=== PATIENT | male | born 1935 | race Caucasian/White ===

== ENCOUNTER 2021-07-17 11:41 | Observation (INO) | payer OTHER ==
[~2021-07-17 11:41] MED LIST: Bamlanivimab 700 MG, ETESEVIMAB 1,400 MG in Sodium Chloride 0.9% 100 ML IV ONE
[2021-07-17] MEDS ORDERED: Sodium Chloride 0.9% 10 ML Syringe FLUSH PRN (11:49)
[2021-07-17] MEDS ORDERED: Sodium Chloride 0.9% 2.5 ML Syringe FLUSH PRN (11:49)
--- NOTE | 2021-07-17 12:05 | PCM.EKG ---
#1 Interpretation EKG Date: 07/17/21 Time: 11:48 Rhythm: NSR Rate (Beats/Min): 58 [place]: Normal P-Wave: Present QRS: LBBB ST-T: Normal QT: Normal Comparison: NA - No Prior EKG EKG Interpretation Comments: A fibrillation with LBBB
[2021-07-17 12:34] LABS: BLOOD UREA NITROGEN,BUN 25 mg/dL (7.0-18.0); CARBON DIOXIDE,CO2 24.4 mmol/L (21.0-32.0); CHLORIDE,CL 104 mmol/L (98-107); GLUCOSE RANDOM 92 mg/dL (74-106); POTASSIUM,K 4.1 mmol/L (3.5-5.1); SODIUM,NA 140 mmol/L (136-148)
[2021-07-17] MEDS ORDERED: Iopamidol 755 MG/ML 500 ML Multipack Bottle IVPUSH STA (13:40)
--- NOTE | 2021-07-17 14:13 | CR ---
INDICATION: Fall TECHNIQUE: AP pelvis two views COMPARISON: 03/26/2018 FINDINGS: Bones: Alignment is normal. Heterotopic bone formation adjacent to the right greater trochanter and proximal shaft. Joint spaces: Total right hip arthroplasty with no obvious hardware abnormalities. Soft tissues: Unremarkable. IMPRESSION: No evidence of acute trauma. Dictated by Adam Abbasi MD @ 07/17/2021 2:11:26 PM (Electronically Signed)
--- NOTE | 2021-07-17 14:17 | CR ---
INDICATION: SOB TECHNIQUE: Chest 1 view. COMPARISON: None. FINDINGS: Cardiovascular and mediastinum: Heart size and vasculature are normal in caliber and appearance. Mediastinum is within normal limits. Lungs and pleural space: Lungs are clear. No sign of infiltrate or mass. No sign of pleural effusion. No pneumothorax. Bones and soft tissues: No significant findings. IMPRESSION: Unremarkable chest. Dictated by: Adam Abbasi MD @ 07/17/2021 14:16:44 (Electronically Signed)
--- NOTE | 2021-07-17 14:21 | CT ---
INDICATION: Shortness of breath. History of atrial fibrillation. TECHNIQUE: CT chest PE was acquired with 100 cc Isovue 370 IV contrast. COMPARISON: None. FINDINGS: Heart and vasculature: Contrast opacification of the pulmonary arterial tree is adequate. No sign of pulmonary embolism. Moderate cardiomegaly with particular enlargement of the left ventricle and atrium.Great vessels normal in caliber. Lungs and pleural: No suspicious nodules or infiltrates. Mild scarring and fibrotic changes in the lung bases. No pleural effusions, pleural thickening, or pneumothorax. Lymph nodes/mediastinum: Few borderline to minimally prominent mediastinal lymph nodes. Small hiatal hernia. Chest wall: No masses. Upper abdomen: No acute or significant findings. Bones: Severe compression fracture of the T12 vertebral body appears chronic. IMPRESSION: 1. No pulmonary embolism. 2. Cardiomegaly without further signs of acute heart failure. 3. Mild bibasilar scarring or fibrosis. 4. No other specific finding to explain shortness of breath. Please note that all CT scans at this facility use dose modulation, iterative reconstruction, and/or weight-based dosing when appropriate to reduce radiation dose to as low as reasonably achievable. Dictated by Rigoberto De La Fuente MD @ 07/17/2021 2:20:47 PM (Electronically Signed)
[2021-07-17 16:07] LABS: CORONAVIRUS COVID-19 NAA POSITIVE (NEGATIVE); INFLUENZA A NAA NEGATIVE (NEGATIVE); INFLUENZA B NAA NEGATIVE (NEGATIVE)
--- NOTE | 2021-07-17 20:35 | EDM.PDOC ---
ED HPI GENERAL MEDICAL PROBLEM - General Chief Complaint: Cardiovascular Problem Stated Complaint: FELL IN SHOWER/HEART ISSUES Time Seen by Provider: 07/17/21 11:51 - History of Present Illness INITIAL COMMENTS - FREE TEXT/NARRATIVE: CHIEF COMPLAINT(S): Tailbone pain HISTORY OF PRESENT ILLNESS: This is a 86-year-old man with a past medical history of hypertension and hypothyroidism who comes to the emergency department with a chief complaint of tailbone pain. The patient states that yesterday he was walking and he got off balance and could not catch himself so he fell on his bottom hitting his tailbone. He states that he is experiencing some pain in his tailbone which she describes as throbbing rated 0 out of 10 currently but when he moves it is about 4-5 out of 10. He denies any bowel incontinence, urinary incontinence or saddle anesthesia. He states that this pain does not radiate and that he does not have any relieving factors. He denies any associated numbness, tingling, or weakness. Pain is exacerbated by movement. He states that after his fall yesterday was evaluated by [facility] and was diagnosed with new onset atrial fibrillation. He states that they recommended admission however they did not have a physician for him to be admitted to and so he was discharged. He states that for the last few days he has been experiencing dyspnea and a nonproductive cough. He denies any fevers, lower extremity edema, recent travel, recent surgery or prior history of DVT or PE. He denies any history of CAD or CHF. He denies any other symptoms. He states that he did not put him on anticoagulation REVIEW OF SYSTEMS: Constitutional: Denies fever, chills. Eyes: Denies eye pain Ears, Nose, Mouth, & Throat: Denies earache Cardiovascular: Denies chest pain Respiratory: Positive for dyspnea and nonproductive cough Gastrointestinal: Denies, bowel incontinence nausea, vomiting, diarrhea, hematochezia. Genitourinary: Denies hematuria, urinary incontinence Skin:Denies a rash MSK: Positive for tailbone pain. Neurological: Denies blurred vision, numbness, tingling, weakness Psychiatric: Denies depression PAST MEDICAL HISTORY: As per history of present illness and as reviewed below otherwise noncontributory. SURGICAL HISTORY: As per history of present illness and as reviewed below otherwise noncontributory. SOCIAL HISTORY: As per history of present illness and as reviewed below other hannah noncontributory. FAMILY HISTORY: As per history of present illness and as reviewed below otherwise noncontributory. EXAMINATION OF ORGAN SYSTEMS/BODY AREAS: Constitutional: Blood pressure is 133/77, heart rate 57, respiratory rate 18 with an oxygen saturation a 96% on room air. Temperature 35.7 temporal General: Well-appearing elderly man who is in no acute distress Psychiatric: Appropriate mood and affect. Eyes: No scleral icterus or conjunctival erythema ENMT: Moist mucous membranes. No pharyngeal erythema Cardiovascular: Regular, rate, and rhythm. No gallops, murmurs, or rubs. Bilateral upper extremity pulses symmetric and intact. No peripheral edema. No JVD. Respiratory: Lungs clear to auscultation bilaterally. No wheezes, rales, or rhonchi. Gastrointestinal: Soft, non-tender, non-distended. Normoactive bowel sounds Genitourinary: No suprapubic tenderness Musculoskeletal: Normal range of motion. No cervical, thoracic, or lumbar midline spinal tenderness. There are some tenderness along the tailbone. No obvious deformity. Skin: No lesions or abrasions. Neurological: Alert, GCS 15 strength and sensation grossly intact in upper and lower extremities bilaterally MEDICAL DECISION MAKING AND COURSE IN THE ED WITH INTERPRETATION/REVIEW OF DIAGNOSTIC STUDIES: This is a 86-year-old man with a past medical history of hypertension and sleep apnea who does not wear his CPAP who comes to the emergency department with dyspnea, nonproductive cough, and outpatient evaluation revealing new onset atrial fibrillation who is now on anticoagulation who is here for tailbone pain after a mechanical fall. I did review the patient's paperwork from discharge. They did obtain a BNP which was not elevated his troponin was normal and otherwise his labs were normal. His chest x-ray at out side hospital did reveal cardiomegaly and nothing else. However given his dyspnea and atrial fibrillation we will obtain a cardiac work-up. Will obtain Covid and influenza swabs. Given the dyspnea and hypoxia will also obtain a D-dimer to evaluate need for possible pulmonary embolism. Patient was amenable to this plan. Given his pain on his sacrum we will obtain a pelvic x- ray given that they did not obtain this image at outside hospital. EKG was obtained which did reveal atrial fibrillation with left bundle branch block. DDx: Pelvic fracture, atrial fibrillation, Covid, pneumonia, PE Laboratory: CBC is unremarkable. INR is normal. CMP is unremarkable. Troponin is negative. D-dimer is elevated at 1.1. Covid is positive. The radiological images were viewed by myself along with reading the report from the radiologist. Chest x-ray does not reveal any acute cardiopulmonary process. Pelvic x-ray does not reveal any fracture or dislocation. Given the elevated D-dimer I did discuss that I would like to obtain an angiogram of the chest. They were amenable to this plan. Patient's vitals continue to remain stable and was borderline hypoxic. The radiological images were viewed by myself along with reading the report from the radiologist. CT angiogram of the chest does not reveal any evidence of pulmonary embolism. There is cardiomegaly without signs of heart failure. After imaging given new onset atrial fibrillation I did discuss observation at this time to discuss need for echocardiogram and anticoagulation. They were amenable to this plan. I contacted Dr. Givens who accepted the patient for admission DISPOSITION: Patient was admitted for observation in stable condition CONDITION: Fair PROCEDURES: Cardiac monitoring interpretation, pulse oximetry interpretation FINAL IMPRESSION(S)/DIAGNOSES: 1. Acute new onset atrial fibrillation 2. Acute COVID-19 infection 3. Acute intermittent hypoxia likely secondary to #1 and #2 Kwadwo Alba M.D. - Related Data Allergies Allergy/AdvReac Type Severity Reaction Status Date / Time No Known Allergies Allergy Verified 07/17/21 17:53 Home Meds: Home Meds Levothyroxine [Synthroid] 50 mcg PO DAILY 07/17/21 [History] Oxybutynin 10 mg PO DAILY 07/17/21 [History] hydroCHLOROthiazide [Hydrochlorothiazide] 25 mg PO DAILY 07/17/21 [History] lisinopriL [Lisinopril] 40 mg PO DAILY 07/17/21 [History] Past Medical History HEENT History: Reports: Impaired Vision Cardiovascular History: Reports: High Cholesterol, Hypertension, Other (See Below) Other Cardiovascular History: CAD Respiratory History: Reports: None Gastrointestinal History: Reports: Colon Polyp, Other (See Below) Other Gastrointestinal History: Unilateral ingunial hernia repair Genitourinary History: Reports: Prostate Disorder, Other (See Below) Other Genitourinary History: nocturia, renal cyst, renal kindey disease stage 3 Musculoskeletal History: Reports: Fracture Other Musculoskeletal History: hip and right arm frature, right hip arthroplasty Neurological History: Reports: None Endocrine/Metabolic History: Reports: Hypothyroidism - Past Surgical History HEENT Surgical History: Reports: Adenoidectomy, Tonsillectomy Cardiovascular Surgical History: Reports: None Respiratory Surgical History: Reports: None GI Surgical History: Reports: Hernia, Inguinal Male Surgical History: Reports: None Musculoskeletal Surgical History: Reports: None, Hip Replacement Social & Family History - Family History Family Medical History: No Pertinent Family History - Tobacco Use Tobacco Use Status *Q: Never Tobacco User - Caffeine Use Caffeine Use: Reports: None - Recreational Drug Use Recreational Drug Use: No ED ROS GENERAL - Review of Systems Review Of Systems: See Below ED EXAM, GENERAL - Physical Exam Exam: See Below Course - Vital Signs Last Recorded V/S: Last Vital Signs Temp 36.2 C 07/17/21 20:06 Pulse 61 07/17/21 20:06 Resp 18 07/17/21 20:06 BP 124/80 07/17/21 20:06 Pulse Ox 93 L 07/17/21 20:06 - Orders/Labs/Meds Orders: Active Orders 24 hr Category Date Time Status Admission Status [Patient Status] [ADT] Stat ADT 07/17/21 15:23 Active Cardiac Monitoring [RC] . DIRECTED Care 07/17/21 11:49 Active Sodium Chloride 0.9% [Saline Flush] Med 07/17/21 11:49 Active 10 ml FLUSH ASDIRECTED PRN Sodium Chloride 0.9% [Saline Flush] Med 07/17/21 11:49 Active 2.5 ml FLUSH ASDIRECTED PRN Saline Lock Insert [OM.PC] Stat Oth 07/17/21 11:49 Ordered Medication Orders Sodium Chloride (Sodium Chloride 0.9% 10 Ml Syringe) 10 ml FLUSH ASDIRECTED PRN PRN Reason: Keep Vein Open Last Admin: 07/17/21 12:04 Dose: 10 ml Documented by: KIRAN Sodium Chloride (Sodium Chloride 0.9% 2.5 Ml Syringe) 2.5 ml FLUSH ASDIRECTED PRN PRN Reason: Keep Vein Open Last Admin: 07/17/21 12:04 Dose: 2.5 ml Documented by: KIRAN Labs: Laboratory Tests 07/17/21 07/17/21 07/17/21 Range/Units 12:00 12:00 12:00 WBC 5.71 (4.0-11.0) K/uL RBC 4.15 L (4.50-5.90) M/uL Hgb 14.0 (13.0-17.0) g/dL Hct 41.4 (38.0-50.0) % MCV 99.8 H (80.0-98.0) fL MCH 33.7 H (27.0-32.0) pg MCHC 33.8 (31.0-37.0) g/dL RDW Std Deviation 49.0 (28.0-62.0) fl RDW Coeff of Angeline 13 (11.0-15.0) % Plt Count 155 (150-400) K/uL MPV 9.80 (7.40-12.00) fL Neut % (Auto) 51.9 (48.0-80.0) % Lymph % (Auto) 27.5 (16.0-40.0) % [place] % (Auto) 18.6 H (0.0-15.0) % Eos % (Auto) 1.8 (0.0-7.0) % Baso % (Auto) 0.2 (0.0-1.5) % Neut # (Auto) 3.0 (1.4-5.7) K/uL Lymph # (Auto) 1.6 (0.6-2.4) K/uL [place] # (Auto) 1.1 H (0.0-0.8) K/uL Eos # (Auto) 0.1 (0.0-0.7) K/uL Baso # (Auto) 0.0 (0.0-0.1) K/uL Nucleated RBC % 0.0 /100WBC Nucleated RBCs # 0 K/uL INR 1.13 D-Dimer, Quantitative (0.0-0.50) mg/L FEU Sodium 140 (136-148) mmol/L Potassium 4.1 (3.5-5.1) mmol/L Chloride 104 (98-107) mmol/L Carbon Dioxide 24.4 (21.0-32.0) mmol/L BUN 25 H (7.0-18.0) mg/dL Creatinine 1.1 (0.8-1.3) mg/dL Est Cr Clr Drug Dosing 50.39 mL/min Estimated GFR (MDRD) > 60.0 ml/min Glucose 92 (74-106) mg/dL Calcium 8.2 L (8.5-10.1) mg/dL Total Bilirubin 0.8 (0.2-1.0) mg/dL AST 34 (15-37) IU/L ALT 23 (14-63) IU/L Alkaline Phosphatase 81 (46-116) U/L Troponin I < 0.050 (0.000-0.056) ng/mL Total Protein 7.4 (6.4-8.2) g/dL Albumin 3.1 L (3.4-5.0) g/dL Globulin 4.3 H (2.6-4.0) g/dL Albumin/Globulin Ratio 0.7 L (0.9-1.6) Influenza Type A RNA (NEGATIVE) Influenza Type B RNA (NEGATIVE) SARS-CoV-2 RNA ([place]AY[place]AN) (NEGATIVE) 07/17/21 07/17/21 Range/Units 12:00 15:20 WBC (4.0-11.0) K/uL RBC (4.50-5.90) M/uL Hgb (13.0-17.0) g/dL Hct (38.0-50.0) % MCV (80.0-98.0) fL MCH (27.0-32.0) pg MCHC (31.0-37.0) g/dL RDW Std Deviation (28.0-62.0) fl RDW Coeff of Angeline (11.0-15.0) % Plt Count (150-400) K/uL MPV (7.40-12.00) fL Neut % (Auto) (48.0-80.0) % Lymph % (Auto) (16.0-40.0) % [place] % (Auto) (0.0-15.0) % Eos % (Auto) (0.0-7.0) % Baso % (Auto) (0.0-1.5) % Neut # (Auto) (1.4-5.7) K/uL Lymph # (Auto) (0.6-2.4) K/uL [place] # (Auto) (0.0-0.8) K/uL Eos # (Auto) (0.0-0.7) K/uL Baso # (Auto) (0.0-0.1) K/uL Nucleated RBC % /100WBC Nucleated RBCs # K/uL INR D-Dimer, Quantitative 1.10 H (0.0-0.50) mg/L FEU Sodium (136-148) mmol/L Potassium (3.5-5.1) mmol/L Chloride (98-107) mmol/L Carbon Dioxide (21.0-32.0) mmol/L BUN (7.0-18.0) mg/dL Creatinine (0.8-1.3) mg/dL Est Cr Clr Drug Dosing mL/min Estimated GFR (MDRD) ml/min Glucose (74-106) mg/dL Calcium (8.5-10.1) mg/dL Total Bilirubin (0.2-1.0) mg/dL AST (15-37) IU/L ALT (14-63) IU/L Alkaline Phosphatase (46-116) U/L Troponin I (0.000-0.056) ng/mL Total Protein (6.4-8.2) g/dL Albumin (3.4-5.0) g/dL Globulin (2.6-4.0) g/dL Albumin/Globulin Ratio (0.9-1.6) Influenza Type A RNA NEGATIVE (NEGATIVE) Influenza Type B RNA NEGATIVE (NEGATIVE) SARS-CoV-2 RNA (KAY[place]AN) POSITIVE H (NEGATIVE) Meds: Medications Generic Name Dose Route Start Last Admin Trade Name Freq PRN Reason Stop Dose Admin Sodium Chloride 10 ml 07/17/21 11:49 07/17/21 12:04 Sodium Chloride 0.9% 10 Ml Syringe FLUSH 10 ml ASDIRECTED PRN Administration Keep Vein Open Sodium Chloride 2.5 ml 07/17/21 11:49 07/17/21 12:04 Sodium Chloride 0.9% 2.5 Ml Syringe FLUSH 2.5 ml ASDIRECTED PRN Administration Keep Vein Open Discontinued Medications Generic Name Dose Route Start Last Admin Trade Name Freq PRN Reason Stop Dose Admin Iopamidol 100 ml 07/17/21 13:40 07/17/21 13:42 Iopamidol 755 Mg/Ml 500 Ml Multipack Bottle IVPUSH 07/17/21 13:41 100 ml ONETIME STA Administration Departure - Departure Time of Disposition: 15:23 Disposition: Admitted As Inpatient 65 Condition: Fair Clinical Impression: Atrial fibrillation, COVID-19 - Discharge Information Sepsis Event Note (ED) - Evaluation Sepsis Screening Result: No Definite Risk - Focused Exam Vital Signs: Vital Signs Temp Pulse Resp BP Pulse Ox 07/17/21 15:34 58 L 19 129/75 92 L 07/17/21 14:31 59 L 16 134/84 92 L 07/17/21 11:52 35.7 C L 57 L 18 133/77 96 - My Orders Last 24 Hours: My Active Orders 07/17/21 15:23 Admission Status [Patient Status] [ADT] Stat - Assessment/Plan Last 24 Hours: My Active Orders 07/17/21 15:23 Admission Status [Patient Status] [ADT] Stat
[2021-07-17] MEDS ORDERED: methylPREDNISolone Sodium Succinate 125 MG/2 ML SDV IVPUSH PRN ×2 (21:34→23:55)
[2021-07-17] MEDS ORDERED: EPINEPHrine 1:10,000 1 MG/10 ML Syringe IM PRN ×2 (21:34→23:55)
[2021-07-17] MEDS ORDERED: diphenhydrAMINE 50 MG/ML SDV IVPUSH PRN ×2 (21:34→23:55)
[2021-07-17] MEDS ORDERED: Famotidine 20 MG/2 ML SDV IVPUSH PRN ×2 (21:34→23:55)
--- NOTE | 2021-07-17 21:35 | PCM.HP.2 ---
H&P History of Present Illness - General Date of Service: 07/17/21 Admit Problem/Dx: Admission Diagnosis/Problem Admission Diagnosis/Problem Atrial fibrillation - History of Present Illness Initial Comments - Free Text/Narative: 86 yo male who presented to the ED with complains of tailbone pain after a fall. He also reported to ED that he has been short of breath and was found to be in atrial fibrillation recent in [place]. Patient is alone during my interview and denies ever having any pain or shortness of breath. He was noted to be in atrial fibrillation again in the ED. Pelvis x-ray and CT chest were unremarkable. He is positive for COVID. He has been vaccinated. - Related Data Allergies/Adverse Reactions: Allergies Allergy/AdvReac Type Severity Reaction Status Date / Time No Known Allergies Allergy Verified 07/17/21 17:53 Home Medications: Home Meds Levothyroxine [Synthroid] 50 mcg PO DAILY 07/17/21 [History] Oxybutynin 10 mg PO DAILY 07/17/21 [History] hydroCHLOROthiazide [Hydrochlorothiazide] 25 mg PO DAILY 07/17/21 [History] lisinopriL [Lisinopril] 40 mg PO DAILY 07/17/21 [History] Past Medical History HEENT History: Reports: Impaired Vision Cardiovascular History: Reports: High Cholesterol, Hypertension, Other (See Below) Other Cardiovascular History: CAD Respiratory History: Reports: None Gastrointestinal History: Reports: Colon Polyp, Other (See Below) Other Gastrointestinal History: Unilateral ingunial hernia repair Genitourinary History: Reports: Prostate Disorder, Other (See Below) Other Genitourinary History: nocturia, renal cyst, renal kindey disease stage 3 Musculoskeletal History: Reports: Fracture Other Musculoskeletal History: hip and right arm frature, right hip arthroplasty Neurological History: Reports: None Endocrine/Metabolic History: Reports: Hypothyroidism - Past Surgical History HEENT Surgical History: Reports: Adenoidectomy, Tonsillectomy Cardiovascular Surgical History: Reports: None Respiratory Surgical History: Reports: None GI Surgical History: Reports: Hernia, Inguinal Male Surgical History: Reports: None Musculoskeletal Surgical History: Reports: None, Hip Replacement Social & Family History - Family History Family Medical History: No Pertinent Family History - Tobacco Use Tobacco Use Status *Q: Never Tobacco User - Caffeine Use Caffeine Use: Reports: None - Recreational Drug Use Recreational Drug Use: No H&P Review of Systems - Review of Systems: Review Of Systems: Comprehensive ROS is negative, except as noted in HPI. Exam - Exam Exam: See Below - Vital Signs Vital Signs: Last Vital Signs Temp 36.2 C 07/17/21 20:06 Pulse 61 07/17/21 20:06 Resp 18 07/17/21 20:06 BP 124/80 07/17/21 20:06 Pulse Ox 93 L 07/17/21 20:06 Weight: 75.432 kg - Exam General: Alert, Oriented HEENT: Posterior Pharynx Clear Lungs: Clear to Auscultation, Normal Respiratory Effort Cardiovascular: Regular Rate, Regular Rhythm GI/Abdominal Exam: Soft, Non-Tender, No Distention Extremities: Non-Tender, No Pedal Edema Skin: Warm, Dry, Intact - Patient Data Lab Results Last 24 hrs: Laboratory Results - last 24 hr 07/17/21 07/17/21 07/17/21 Range/Units 12:00 12:00 12:00 WBC 5.71 (4.0-11.0) K/uL RBC 4.15 L (4.50-5.90) M/uL Hgb 14.0 (13.0-17.0) g/dL Hct 41.4 (38.0-50.0) % MCV 99.8 H (80.0-98.0) fL MCH 33.7 H (27.0-32.0) pg MCHC 33.8 (31.0-37.0) g/dL RDW Std Deviation 49.0 (28.0-62.0) fl RDW Coeff of Angeline 13 (11.0-15.0) % Plt Count 155 (150-400) K/uL MPV 9.80 (7.40-12.00) fL Neut % (Auto) 51.9 (48.0-80.0) % Lymph % (Auto) 27.5 (16.0-40.0) % [place] % (Auto) 18.6 H (0.0-15.0) % Eos % (Auto) 1.8 (0.0-7.0) % Baso % (Auto) 0.2 (0.0-1.5) % Neut # (Auto) 3.0 (1.4-5.7) K/uL Lymph # (Auto) 1.6 (0.6-2.4) K/uL [place] # (Auto) 1.1 H (0.0-0.8) K/uL Eos # (Auto) 0.1 (0.0-0.7) K/uL Baso # (Auto) 0.0 (0.0-0.1) K/uL Nucleated RBC % 0.0 /100WBC Nucleated RBCs # 0 K/uL INR 1.13 D-Dimer, Quantitative (0.0-0.50) mg/L FEU Sodium 140 (136-148) mmol/L Potassium 4.1 (3.5-5.1) mmol/L Chloride 104 (98-107) mmol/L Carbon Dioxide 24.4 (21.0-32.0) mmol/L BUN 25 H (7.0-18.0) mg/dL Creatinine 1.1 (0.8-1.3) mg/dL Est Cr Clr Drug Dosing 50.39 mL/min Estimated GFR (MDRD) > 60.0 ml/min Glucose 92 (74-106) mg/dL Calcium 8.2 L (8.5-10.1) mg/dL Total Bilirubin 0.8 (0.2-1.0) mg/dL AST 34 (15-37) IU/L ALT 23 (14-63) IU/L Alkaline Phosphatase 81 (46-116) U/L Troponin I < 0.050 (0.000-0.056) ng/mL Total Protein 7.4 (6.4-8.2) g/dL Albumin 3.1 L (3.4-5.0) g/dL Globulin 4.3 H (2.6-4.0) g/dL Albumin/Globulin Ratio 0.7 L (0.9-1.6) Influenza Type A RNA (NEGATIVE) Influenza Type B RNA (NEGATIVE) SARS-CoV-2 RNA (KAYLAN) (NEGATIVE) 07/17/21 07/17/21 Range/Units 12:00 15:20 WBC (4.0-11.0) K/uL RBC (4.50-5.90) M/uL Hgb (13.0-17.0) g/dL Hct (38.0-50.0) % MCV (80.0-98.0) fL MCH (27.0-32.0) pg MCHC (31.0-37.0) g/dL RDW Std Deviation (28.0-62.0) fl RDW Coeff of Angeline (11.0-15.0) % Plt Count (150-400) K/uL MPV (7.40-12.00) fL Neut % (Auto) (48.0-80.0) % Lymph % (Auto) (16.0-40.0) % [place] % (Auto) (0.0-15.0) % Eos % (Auto) (0.0-7.0) % Baso % (Auto) (0.0-1.5) % Neut # (Auto) (1.4-5.7) K/uL Lymph # (Auto) (0.6-2.4) K/uL [place] # (Auto) (0.0-0.8) K/uL Eos # (Auto) (0.0-0.7) K/uL Baso # (Auto) (0.0-0.1) K/uL Nucleated RBC % /100WBC Nucleated RBCs # K/uL INR D-Dimer, Quantitative 1.10 H (0.0-0.50) mg/L FEU Sodium (136-148) mmol/L Potassium (3.5-5.1) mmol/L Chloride (98-107) mmol/L Carbon Dioxide (21.0-32.0) mmol/L BUN (7.0-18.0) mg/dL Creatinine (0.8-1.3) mg/dL Est Cr Clr Drug Dosing mL/min Estimated GFR (MDRD) ml/min Glucose (74-106) mg/dL Calcium (8.5-10.1) mg/dL Total Bilirubin (0.2-1.0) mg/dL AST (15-37) IU/L ALT (14-63) IU/L Alkaline Phosphatase (46-116) U/L Troponin I (0.000-0.056) ng/mL Total Protein (6.4-8.2) g/dL Albumin (3.4-5.0) g/dL Globulin (2.6-4.0) g/dL Albumin/Globulin Ratio (0.9-1.6) Influenza Type A RNA NEGATIVE (NEGATIVE) Influenza Type B RNA NEGATIVE (NEGATIVE) SARS-CoV-2 RNA (KAYLAN) POSITIVE H (NEGATIVE) Result Diagrams: 07/17/21 12:00 07/17/21 12:00 Sepsis Event Note - Evaluation Sepsis Screening Result: No Definite Risk - Focused Exam Vital Signs: Vital Signs Temp Pulse Resp BP Pulse Ox 07/17/21 20:06 36.2 C 61 18 124/80 93 L 07/17/21 17:51 36.3 C 69 16 160/89 H 93 L 07/17/21 15:55 50 L 12 125/77 93 L 07/17/21 15:34 58 L 19 129/75 92 L 07/17/21 14:31 59 L 16 134/84 92 L 07/17/21 11:52 35.7 C L 57 L 18 133/77 96 - Problem List (1) Atrial fibrillation SNOMED Code(s): 67958489 ICD Code: I48.91 - UNSPECIFIED ATRIAL FIBRILLATION Status: Acute Current Visit: Yes (2) COVID-19 SNOMED Code(s): 982014870 ICD Code: U07.1 - COVID-19 Status: Acute Current Visit: Yes Problem List Initiated/Reviewed/Updated: Yes Orders Last 24hrs: Active Orders 24 hr Category Date Time Status Admission Status [Patient Status] [ADT] Stat ADT 07/17/21 15:23 Active Cardiac Monitoring [RC] . DIRECTED Care 07/17/21 11:49 Active Oxygen Therapy [RC] PRN Care 07/17/21 21:27 Ordered VTE/DVT Education [RC] PER UNIT ROUTINE Care 07/17/21 21:27 Ordered Vital Signs [RC] Q4H Care 07/17/21 21:27 Ordered PT Evaluation and Treatment [CONS] Routine Cons 07/17/21 21:27 Ordered Regular Diet [DIET] Diet 07/17/21 Breakfast Ordered Echo Comp wo Cont [US] Routine Exams 07/17/21 21:28 Ordered CBC WITH AUTO DIFF [HEME] AM Lab 07/18/21 05:11 Ordered COMPREHENSIVE METABOLIC PN,CMP [CHEM] AM Lab 07/18/21 05:11 Ordered Apixaban [Eliquis] Med 07/17/21 21:30 Ordered 5 mg PO BID Levothyroxine [Synthroid] Med 07/18/21 09:00 Ordered 50 mcg PO DAILY Oxybutynin Med 07/18/21 09:00 Ordered 10 mg PO DAILY Sodium Chloride 0.9% [Saline Flush] Med 07/17/21 11:49 Active 10 ml FLUSH ASDIRECTED PRN Sodium Chloride 0.9% [Saline Flush] Med 07/17/21 11:49 Active 2.5 ml FLUSH ASDIRECTED PRN hydroCHLOROthiazide Med 07/18/21 09:00 Ordered 25 mg PO DAILY lisinopriL [Lisinopril] Med 07/18/21 09:00 Ordered 40 mg PO DAILY Saline Lock Insert [OM.PC] Stat Oth 07/17/21 11:49 Ordered Resuscitation Status Routine Resus Stat 07/17/21 21:27 Ordered Medication Orders Apixaban (Apixaban 5 Mg Tab) 5 mg PO BID JOHN Hydrochlorothiazide (Hydrochlorothiazide 25 Mg Tab) 25 mg PO DAILY JOHN Levothyroxine Sodium (Levothyroxine 50 Mcg Tab) 50 mcg PO DAILY JOHN Lisinopril (Lisinopril 10 Mg Tab) 40 mg PO DAILY JOHN Oxybutynin Chloride (Oxybutynin 5 Mg Tab) 10 mg PO DAILY JOHN Sodium Chloride (Sodium Chloride 0.9% 10 Ml Syringe) 10 ml FLUSH ASDIRECTED PRN PRN Reason: Keep Vein Open Last Admin: 07/17/21 12:04 Dose: 10 ml Documented by: KIRAN Sodium Chloride (Sodium Chloride 0.9% 2.5 Ml Syringe) 2.5 ml FLUSH ASDIRECTED PRN PRN Reason: Keep Vein Open Last Admin: 07/17/21 12:04 Dose: 2.5 ml Documented by: KIRAN Assessment/Plan Comment:: 86 yo male admitted following a fall, found to be atrial fibrillation and has COVID COVID: will give monoclonal antibodies if available A.fib: rate controlled will start Eliquis, and order echocardiogram fall: consult PT
[2021-07-17] MEDS ORDERED: Bamlanivimab 700 MG, ETESEVIMAB 1,400 MG in Sodium Chloride 0.9% 100 ML IV ONE (21:45)
[2021-07-17] MEDS ORDERED: Sodium Chloride 0.9% 10 ML Syringe FLUSH SCH ×2 (21:45→23:45)
[2021-07-17] MEDS: Apixaban 5 MG Tab PO SCH (23:06)
[2021-07-18 07:34] LABS: BLOOD UREA NITROGEN,BUN 24 mg/dL (7.0-18.0); CARBON DIOXIDE,CO2 22.6 mmol/L (21.0-32.0); CHLORIDE,CL 102 mmol/L (98-107); GLUCOSE RANDOM 80 mg/dL (74-106); POTASSIUM,K 3.9 mmol/L (3.5-5.1); SODIUM,NA 136 mmol/L (136-148)
[2021-07-18] MEDS ORDERED: Lisinopril 10 MG Tab PO SCH (09:00)
[2021-07-18] MEDS ORDERED: Bamlanivimab 700 MG, ETESEVIMAB 1,400 MG in Sodium Chloride 0.9% 100 ML IV ONE (09:00)
[2021-07-18] MEDS ORDERED: Oxybutynin 5 MG Tab PO SCH (09:00)
[2021-07-18] MEDS ORDERED: Levothyroxine 50 MCG Tab PO SCH (09:00)
[2021-07-18] MEDS ORDERED: Hydrochlorothiazide 25 MG Tab PO SCH (09:00)
[2021-07-18] MEDS: Apixaban 5 MG Tab PO SCH (09:28)
--- NOTE | 2021-07-18 11:41 | PCM.DCSUM1 ---
Discharge Summary - Discharge Data Discharge Date: 07/18/21 Discharge Disposition: Home, Self-Care 01 Condition: Good - Referral to Home Health Primary Care Physician: Rory Adams NP - Discharge Diagnosis/Problem(s) (1) Atrial fibrillation SNOMED Code(s): 08344239 ICD Code: I48.91 - UNSPECIFIED ATRIAL FIBRILLATION Status: Acute Current Visit: Yes (2) COVID-19 SNOMED Code(s): 219397142 ICD Code: U07.1 - COVID-19 Status: Acute Current Visit: Yes - Patient Summary/Data Consults: Consultations 07/17/21 21:27 PT Evaluation and Treatment [CONS] Routine Hospital Course: 86 yo male who presented to the ED with complains of tailbone pain after a fall. He also reported to ED that he has been short of breath and was found to be in atrial fibrillation recent in [place]. He was noted to be in atrial fibrillation again in the ED. Pelvis x-ray and CT chest were unremarkable. He is positive for COVID. He has been vaccinated. He was monitored overnight without any events. He has remained rate controlled. Echocardiogram was performed and he was given monoclonal antibodies. PT was consulted and felt he was safe to discharge. After discussing with patient the use of anticoagulation for stroke risk reduction we decided to start Eliquis. Patient was discharged home to have follow u at [facility]. - Patient Instructions Diet: Regular Diet as Tolerated - Discharge Plan Prescriptions/Med Rec: Apixaban [Eliquis] 5 mg PO BID #60 tablet Home Medications: Home Meds Levothyroxine [Synthroid] 50 mcg PO DAILY 07/17/21 [History] Oxybutynin 10 mg PO DAILY 07/17/21 [History] hydroCHLOROthiazide [Hydrochlorothiazide] 25 mg PO DAILY 07/17/21 [History] lisinopriL [Lisinopril] 40 mg PO DAILY 07/17/21 [History] Apixaban [Eliquis] 5 mg PO BID #60 tablet 07/18/21 [Rx] Patient Handouts: COVID-19 Frequently Asked Questions, COVID-19 Vaccine Information, COVID-19: How to Protect Yourself and Others - CDC, Atrial Fibrillation, [id number] Referrals: Rory Adams NP [Primary Care Provider] - 08/14/21 1:30 pm - Discharge Summary/Plan Comment DC Time >30 min.: No Total # of Minutes for Discharge Time: 15 - Patient Data Vitals - Most Recent: Last Vital Signs Temp 36.8 C 07/18/21 08:00 Pulse 70 07/18/21 08:00 Resp 22 H 07/18/21 08:00 BP 137/77 07/18/21 09:27 Pulse Ox 92 L 07/18/21 08:00 Weight - Most Recent: 75.432 kg I&O - Last 24 hours: Intake & Output 07/17/21 07/18/21 07/18/21 22:59 06:59 14:59 Intake Total 400 Output Total 1020 Balance -620 Lab Results - Last 24 hrs: Laboratory Results - last 24 hr 07/17/21 07/17/21 07/17/21 Range/Units 12:00 12:00 12:00 WBC 5.71 (4.0-11.0) K/uL RBC 4.15 L (4.50-5.90) M/uL Hgb 14.0 (13.0-17.0) g/dL Hct 41.4 (38.0-50.0) % MCV 99.8 H (80.0-98.0) fL MCH 33.7 H (27.0-32.0) pg MCHC 33.8 (31.0-37.0) g/dL RDW Std Deviation 49.0 (28.0-62.0) fl RDW Coeff of Angeline 13 (11.0-15.0) % Plt Count 155 (150-400) K/uL MPV 9.80 (7.40-12.00) fL Neut % (Auto) 51.9 (48.0-80.0) % Lymph % (Auto) 27.5 (16.0-40.0) % [place] % (Auto) 18.6 H (0.0-15.0) % Eos % (Auto) 1.8 (0.0-7.0) % Baso % (Auto) 0.2 (0.0-1.5) % Neut # (Auto) 3.0 (1.4-5.7) K/uL Lymph # (Auto) 1.6 (0.6-2.4) K/uL [place] # (Auto) 1.1 H (0.0-0.8) K/uL Eos # (Auto) 0.1 (0.0-0.7) K/uL Baso # (Auto) 0.0 (0.0-0.1) K/uL Nucleated RBC % 0.0 /100WBC Nucleated RBCs # 0 K/uL INR 1.13 D-Dimer, Quantitative (0.0-0.50) mg/L FEU Sodium 140 (136-148) mmol/L Potassium 4.1 (3.5-5.1) mmol/L Chloride 104 (98-107) mmol/L Carbon Dioxide 24.4 (21.0-32.0) mmol/L BUN 25 H (7.0-18.0) mg/dL Creatinine 1.1 (0.8-1.3) mg/dL Est Cr Clr Drug Dosing 50.39 mL/min Estimated GFR (MDRD) > 60.0 ml/min Glucose 92 (74-106) mg/dL Calcium 8.2 L (8.5-10.1) mg/dL Total Bilirubin 0.8 (0.2-1.0) mg/dL AST 34 (15-37) IU/L ALT 23 (14-63) IU/L Alkaline Phosphatase 81 (46-116) U/L Troponin I < 0.050 (0.000-0.056) ng/mL Total Protein 7.4 (6.4-8.2) g/dL Albumin 3.1 L (3.4-5.0) g/dL Globulin 4.3 H (2.6-4.0) g/dL Albumin/Globulin Ratio 0.7 L (0.9-1.6) Influenza Type A RNA (NEGATIVE) Influenza Type B RNA (NEGATIVE) SARS-CoV-2 RNA (KAYLAN) (NEGATIVE) 07/17/21 07/17/21 07/18/21 Range/Units 12:00 15:20 05:36 WBC 5.99 (4.0-11.0) K/uL RBC 4.02 L (4.50-5.90) M/uL Hgb 13.5 (13.0-17.0) g/dL Hct 39.9 (38.0-50.0) % MCV 99.3 H (80.0-98.0) fL MCH 33.6 H (27.0-32.0) pg MCHC 33.8 (31.0-37.0) g/dL RDW Std Deviation 48.5 (28.0-62.0) fl RDW Coeff of Angeline 13 (11.0-15.0) % Plt Count 163 (150-400) K/uL MPV 10.30 (7.40-12.00) fL Neut % (Auto) 53.4 (48.0-80.0) % Lymph % (Auto) 29.7 (16.0-40.0) % [place] % (Auto) 15.5 H (0.0-15.0) % Eos % (Auto) 1.2 (0.0-7.0) % Baso % (Auto) 0.2 (0.0-1.5) % Neut # (Auto) 3.2 (1.4-5.7) K/uL Lymph # (Auto) 1.8 (0.6-2.4) K/uL [place] # (Auto) 0.9 H (0.0-0.8) K/uL Eos # (Auto) 0.1 (0.0-0.7) K/uL Baso # (Auto) 0.0 (0.0-0.1) K/uL Nucleated RBC % 0.0 /100WBC Nucleated RBCs # 0 K/uL INR D-Dimer, Quantitative 1.10 H (0.0-0.50) mg/L FEU Sodium (136-148) mmol/L Potassium (3.5-5.1) mmol/L Chloride (98-107) mmol/L Carbon Dioxide (21.0-32.0) mmol/L BUN (7.0-18.0) mg/dL Creatinine (0.8-1.3) mg/dL Est Cr Clr Drug Dosing mL/min Estimated GFR (MDRD) ml/min Glucose (74-106) mg/dL Calcium (8.5-10.1) mg/dL Total Bilirubin (0.2-1.0) mg/dL AST (15-37) IU/L ALT (14-63) IU/L Alkaline Phosphatase (46-116) U/L Troponin I (0.000-0.056) ng/mL Total Protein (6.4-8.2) g/dL Albumin (3.4-5.0) g/dL Globulin (2.6-4.0) g/dL Albumin/Globulin Ratio (0.9-1.6) Influenza Type A RNA NEGATIVE (NEGATIVE) Influenza Type B RNA NEGATIVE (NEGATIVE) SARS-CoV-2 RNA (KAYLAN) POSITIVE H (NEGATIVE) 07/18/21 Range/Units 05:36 WBC (4.0-11.0) K/uL RBC (4.50-5.90) M/uL Hgb (13.0-17.0) g/dL Hct (38.0-50.0) % MCV (80.0-98.0) fL MCH (27.0-32.0) pg MCHC (31.0-37.0) g/dL RDW Std Deviation (28.0-62.0) fl RDW Coeff of Angeline (11.0-15.0) % Plt Count (150-400) K/uL MPV (7.40-12.00) fL Neut % (Auto) (48.0-80.0) % Lymph % (Auto) (16.0-40.0) % [place] % (Auto) (0.0-15.0) % Eos % (Auto) (0.0-7.0) % Baso % (Auto) (0.0-1.5) % Neut # (Auto) (1.4-5.7) K/uL Lymph # (Auto) (0.6-2.4) K/uL [place] # (Auto) (0.0-0.8) K/uL Eos # (Auto) (0.0-0.7) K/uL Baso # (Auto) (0.0-0.1) K/uL Nucleated RBC % /100WBC Nucleated RBCs # K/uL INR D-Dimer, Quantitative (0.0-0.50) mg/L FEU Sodium 136 (136-148) mmol/L Potassium 3.9 (3.5-5.1) mmol/L Chloride 102 (98-107) mmol/L Carbon Dioxide 22.6 (21.0-32.0) mmol/L BUN 24 H (7.0-18.0) mg/dL Creatinine 1.1 (0.8-1.3) mg/dL Est Cr Clr Drug Dosing 50.39 mL/min Estimated GFR (MDRD) > 60.0 ml/min Glucose 80 (74-106) mg/dL Calcium 8.3 L (8.5-10.1) mg/dL Total Bilirubin 0.8 (0.2-1.0) mg/dL AST 32 (15-37) IU/L ALT 21 (14-63) IU/L Alkaline Phosphatase 70 (46-116) U/L Troponin I (0.000-0.056) ng/mL Total Protein 7.0 (6.4-8.2) g/dL Albumin 2.9 L (3.4-5.0) g/dL Globulin 4.1 H (2.6-4.0) g/dL Albumin/Globulin Ratio 0.7 L (0.9-1.6) Influenza Type A RNA (NEGATIVE) Influenza Type B RNA (NEGATIVE) SARS-CoV-2 RNA (KAYLAN) (NEGATIVE) Med Orders - Current: Current Medications Apixaban (Apixaban 5 Mg Tab) 5 mg PO BID [facility] Last Admin: 07/18/21 Dose: 5 mg Documented by: Diphenhydramine HCl (Diphenhydramine 50 Mg/Ml Sdv) 50 mg IVPUSH ASDIRECTED PRN PRN Reason: hypersensitivity reaction Epinephrine HCl (Epinephrine 1:10,000 1 Mg/10 Ml Syringe) 0.3 mg IM ASDIRECTED PRN PRN Reason: hypersensitivity reaction Famotidine (Famotidine 20 Mg/2 Ml Sdv) 20 mg IVPUSH ASDIRECTED PRN PRN Reason: hypersensitivity reaction Hydrochlorothiazide (Hydrochlorothiazide 25 Mg Tab) 25 mg PO DAILY [facility] Last Admin: 07/18/21 Dose: 25 mg Documented by: Levothyroxine Sodium (Levothyroxine 50 Mcg Tab) 50 mcg PO DAILY [facility] Last Admin: 07/18/21 Dose: 50 mcg Documented by: Lisinopril (Lisinopril 10 Mg Tab) 40 mg PO DAILY [facility] Last Admin: 07/18/21: Dose: 40 mg Documented by: Methylprednisolone Sodium Succinate (Methylprednisolone Sodium Succinate 125 Mg/2 Ml Sdv) 125 mg IVPUSH ASDIRECTED PRN PRN Reason: hypersensitivity reaction Oxybutynin Chloride (Oxybutynin 5 Mg Tab) 10 mg PO DAILY JOHN Last Admin: 07/18/21 09:27 Dose: 10 mg Documented by: Sodium Chloride (Sodium Chloride 0.9% 10 Ml Syringe) 10 ml FLUSH ASDIRECTED PRN PRN Reason: Keep Vein Open Last Admin: 07/17/21 12:04 Dose: 10 ml Documented by: Sodium Chloride (Sodium Chloride 0.9% 2.5 Ml Syringe) 2.5 ml FLUSH ASDIRECTED PRN PRN Reason: Keep Vein Open Last Admin: 07/17/21 12:04 Dose: 2.5 ml Documented by: Sodium Chloride (Sodium Chloride 0.9% 10 Ml Syringe) 30 ml FLUSH ASDIRECTED JOHN Discontinued Medications Bamlanivimab 700 mg/Etesevimab 1,400 mg/ Sodium Chloride 160 mls @ 310 mls/hr IV ONETIME ONE Stop: 07/17/21 22:15 Last Admin: 07/18/21 02:45 Dose: Not Given Documented by: Bamlanivimab 700 mg/Etesevimab 1,400 mg/ Sodium Chloride 160 mls @ 310 mls/hr IV ONETIME ONE Stop: 07/17/21 09:30 Last Admin: 07/18/21 05:18 Dose: Not Given Documented by: SOTROVIMAB 500 mg/ Sodium (Chloride) 108 mls @ 216 mls/hr IV ONETIME ONE Stop: 07/18/21 09:29 Iopamidol (Iopamidol 755 Mg/Ml 500 Ml Multipack Bottle) 100 ml IVPUSH ONETIME STA Stop: 07/17/21 13:41 Last Admin: 07/17/21 13:42 Dose: 100 ml Documented by:
--- NOTE | 2021-07-21 17:24 | ECHO ---
EXAM DATE: 07/17/21 PATIENT'S AGE: 86 The ECHO report has been scanned into [employer] and can be seen in this patient's EMR (Electronic Medical Record) under the REPORTS section. The report has also been scanned into PACS. BEV
== END 2021-07-18 14:25 | disposition home or self-care (01) ==
LOC: MW.ED 11:41 → MW.MS 15:44
PROVIDERS: ADMIT Internal Medicine; ATTEND Internal Medicine
DX: M89.8X8 Other specified disorders of bone, other site (principal); I48.91 Unspecified atrial fibrillation; E78.00 Pure hypercholesterolemia, unspecified; E03.9 Hypothyroidism, unspecified; U07.1 COVID-19; Z79.899 Other long term (current) drug therapy; Z98.890 Other specified postprocedural states; W19.XXXA Unspecified fall, initial encounter
CPT/HCPCS: 0240U; 36415; 71045; 71275; 72170; 80053; 84484; 85025; 85379; 85610; 93005; 93306; 97161; 97530; 99285; A9270; Q0247; Q9967